=== PATIENT | female | born 1955 | race Caucasian/White ===

== ENCOUNTER 2018-07-13 08:02 | Outpatient (CLI) | payer BC, SELFPAY ==
[2018-07-13 09:59] LABS: Absolute Basophil Count 0.01 k/cumm (0.0-0.2); Absolute Eosinophil Count 0.27 k/cumm (0.0-0.7); Absolute Lymphocyte Count 0.78 k/cumm (1.2-3.4); Absolute Neutrophil Count 2.57 k/cumm (1.2-6.7); Basophils % 0.3; Eosinophils % 6.9; HCT 41.9 % (36.0-46.0); HGB 13.5 g/dL (12.0-15.5); Lymphocytes % 19.8; Mean Corp. HGB Concentration 32.2 g/dL (32.0-36.0); Mean Corpuscular Hemoglobin 29.4 pg (27.0-33.0); Mean Corpuscular Volume 91.3 fL (80-95); Mean Platelet Volume 8.3 fL (8.0-11.0); Monocytes % 7.6; Neutrophils % 65.4; Platelet Count 268 x1000/uL (130-400); RBC 4.59 m/cumm (4.00-5.20); RBC Distribution Width 12.8 % (11.7-14.6); White Blood Cell Count 3.93 k/cumm (4.4-10.8)
[2018-07-13 10:13] LABS: ALT 27 U/L (12-78); AST 18 U/L (15-37); Albumin 4.2 g/dL (3.4-5.0); Alkaline Phosphatase 55 U/L (46-116); Anion Gap 3.7 mmol/L (3-11); BUN 23 mg/dL (7-18); Bilirubin, Total 0.5 mg/dL (0.2-1.0); CO2 34.3 mmol/L (21.0-32.0); CREATININE 0.93 mg/dL (0.55-1.02); Calcium 9.4 mg/dL (8.5-10.1); Chloride 105 mmol/L (98-107); Glucose 80 mg/dL (70-100); Potassium 4.1 mmol/L (3.5-5.1); Sodium 143 mmol/L (136-145); Total Protein 7.3 g/dL (6.4-8.2)
[2018-07-14 10:18] LABS: CEA <0.5 ng/ml
== END 2018-07-13 08:22 ==
PROVIDERS: PCP Family Medicine; Visit Provider Nurse Practitioner Adult Health
DX: C20 Malignant neoplasm of rectum (principal)
CPT/HCPCS: 36415; 80053; 82378; 85025

== ENCOUNTER 2018-08-02 09:27 | Outpatient (CLI) | payer BC, SELFPAY ==
--- NOTE | 2018-08-02 08:52 | DI.MAMMO_ITS ---
SYMPTOMS/DIAGNOSIS: BREAST CANCER SCREENING, Z12.31 BILATERAL SCREENING MAMMOGRAM: Mammograms were interpreted according to the usual protocol including computer analysis with CAD system, tomosynthesis and C view imaging. Comparison is made with exams from 2008 through 2015. The breasts are composed of heterogeneously dense fibroglandular tissue, breast density category C. No suspicious masses or suspicious microcalcifications are seen. There has been no significant change. IMPRESSION: Category 1C, negative mammogram. Yearly screening mammography is recommended. [facility] ASSESSMENT OF FINDINGS: Negative. Category 1. Patient will receive a letter notifying them of these results. Bi-RADS category C. The breasts are heterogeneously dense, which may obscure small masses.
== END 2018-08-02 09:47 ==
PROVIDERS: PCP Family Medicine; Visit Provider Nurse Practitioner Family
DX: Z12.31 Encounter for screening mammogram for malignant neoplasm of breast (principal)
CPT/HCPCS: 77063; 77067

== ENCOUNTER 2019-07-25 08:43 | Outpatient (CLI) | payer MEDICARE, BC, SELFPAY ==
[2019-07-25 10:13] LABS: ALT 17 U/L (14-59); AST 17 U/L (15-37); Alkaline Phosphatase 74 U/L (46-116); Anion Gap 7.3 mmol/L (3-11); BUN 17 mg/dL (7-18); Bilirubin, Total 0.5 mg/dL (0.2-1.0); CO2 34.7 mmol/L (21.0-32.0); CREATININE 0.96 mg/dL (0.55-1.02); Calcium 9.3 mg/dL (8.5-10.1); Calculated LDL 87 mg/dL; Chloride 102 mmol/L (98-107); Cholesterol 177 mg/dL (50-200); Estimated GFR 58.33 (mL/min/1.73m2); Glucose 85 mg/dL (70-100); HDL Cholesterol 85 mg/dL (40-60); Sodium 144 mmol/L (136-145); Total Protein 6.6 g/dL (6.4-8.2); Triglyceride 27 mg/dL (30-150)
== END 2019-07-25 09:03 ==
PROVIDERS: PCP Family Medicine; Visit Provider Family Medicine
DX: I10 Essential (primary) hypertension (principal); Z13.220 Encounter for screening for lipoid disorders
CPT/HCPCS: 36415; 80053; 80061

== ENCOUNTER 2019-08-09 01:55 | Outpatient (CLI) | payer MEDICARE, BC, SELFPAY ==
--- NOTE | 2019-08-09 08:16 | DI.MAMMO_ITS ---
EXAM: MG MAMMO SCREENING CLINICAL HISTORY: screening,Z12.39 TECHNIQUE: Bilateral full field digital CC and MLO mammographic images were obtained with 3D tomosyn thesis and utilizing computer aided detection (CAD). COMPARISON: Available for comparison. FINDINGS: Masses/Architectural Distortion: None seen. Microcalcifications: No suspicious pleomorphic-type are seen. Skin Thickening/Nipple Retraction: None. IMPRESSION: 1. No significant interval change with no specific features of malignancy noted. 2. Unless there is more urgent need, screening mammography is recommended, as per [employer] guidelines. ACR BI-RAD Category- 1 Negative Breast Density - Category C - Heterogeneously dense The mammogram demonstrates the patient's breast tissue is dense. Dense breast tissue is very common a nd is not abnormal but dense breast tissue can make it harder to find cancer on a mammogram. Also, de nse breast tissue may increase their breast cancer risk. This information about the result of the [facility] mogram report was provided to the patient to raise their awareness. Use this report when you speak wi th the patient about their risks for breast cancer, which includes their family history. At that time , you may recommend for more screening tests (Ultrasound or MRI) as they might be useful based on the ir risk. A negative radiographic report should not delay biopsy if a dominant or clinically suspicious mass is present. Up to ten percent of cancers are not identified on mammography. A negative report may reinforce clinical impression. Adenosis and dense breasts may obscure an underlying neoplasm. False positive reports average 6 to 10%.
== END 2019-08-09 02:15 ==
PROVIDERS: PCP Family Medicine; Visit Provider Family Medicine
DX: Z12.31 Encounter for screening mammogram for malignant neoplasm of breast (principal)
CPT/HCPCS: 77063; 77067

== ENCOUNTER 2021-01-01 10:14 | Outpatient (CLI) | payer MEDICARE, BC, SELFPAY ==
[2021-01-02 14:02] LABS: COVID-19 RT-PCR UVMMC Result Positive (Negative)
== END 2021-01-01 10:15 | disposition home or self-care (01) ==
PROVIDERS: PCP Family Medicine; Visit Provider Family Medicine
DX: Z20.822 Contact with and (suspected) exposure to COVID-19 (principal)
CPT/HCPCS: U0003; U0005

== ENCOUNTER 2021-01-22 01:48 | Outpatient (CLI) | payer MEDICARE, BC, SELFPAY ==
--- NOTE | 2021-01-22 08:46 | DI.MAMMO_ITS ---
EXAM: MG MAMMO SCREENING CLINICAL HISTORY: screening,Z12.39 TECHNIQUE: Bilateral full field digital CC and MLO mammographic images were obtained with 3D tomosyn thesis and utilizing computer aided detection (CAD). COMPARISON: Available for comparison. FINDINGS: Masses/Architectural Distortion: None seen. Microcalcifications: No suspicious pleomorphic-type are seen. Skin Thickening/Nipple Retraction: None. IMPRESSION: 1. No significant interval change with no specific features of malignancy noted. 2. Unless there is more urgent need, screening mammography is recommended, as per [place] [employer] guidelines. BI-RADS Category 1 - Negative Breast Density - Category C - Heterogeneously dense Breast density category C or D implies that the patient has dense breast tissue. Dense breast tissue is very common and is not abnormal but dense breast tissue can make it harder to find cancer on a ma mmogram. Also, dense breast tissue may increase their breast cancer risk. This information about the result of the mammogram report was provided to the patient to raise their awareness. Use this report when you speak with the patient about their risks for breast cancer, which includes their family hist ory. At that time, you may recommend for more screening tests (Ultrasound or MRI) as they might be us eful based on their risk. A negative radiographic report should not delay biopsy if a dominant or clinically suspicious mass is present. Up to ten percent of cancers are not identified on mammography. A negative report may reinforce clinical impression. Adenosis and dense breasts may obscure an underlying neoplasm. False positive reports average 6 to 10%. Patient will receive a letter notifying them of these results.
== END 2021-01-22 02:08 ==
PROVIDERS: PCP Family Medicine; Visit Provider Family Medicine
DX: Z12.31 Encounter for screening mammogram for malignant neoplasm of breast (principal)
CPT/HCPCS: 77063; 77067

== ENCOUNTER 2021-01-22 03:45 | Outpatient (CLI) | payer MEDICARE, BC, SELFPAY ==
[2021-01-22 09:31] LABS: ALT 41 U/L (14-59); AST 30 U/L (15-37); Albumin 3.9 g/dL (3.4-5.0); Alkaline Phosphatase 60 U/L (46-116); Anion Gap 6.8 mmol/L (3-11); BUN 22 mg/dL (7-18); Bilirubin, Total 0.4 mg/dL (0.2-1.0); CO2 32.2 mmol/L (21.0-32.0); Calcium 8.8 mg/dL (8.5-10.1); Chloride 103 mmol/L (98-107); Estimated GFR 55.47 (mL/min/1.73m2); Glucose 91 mg/dL (74-106); Potassium 3.7 mmol/L (3.5-5.1); Sodium 142 mmol/L (136-145); Total Protein 6.7 g/dL (6.4-8.2)
== END 2021-01-22 03:46 | disposition home or self-care (01) ==
LOC: LBO 03:45
PROVIDERS: PCP Family Medicine; Visit Provider Family Medicine
DX: I10 Essential (primary) hypertension (principal)
CPT/HCPCS: 36415; 80053

== ENCOUNTER 2022-01-03 03:33 | Outpatient (CLI) | payer MEDICARE, BC, SELFPAY ==
[2022-01-03 12:20] LABS: Anion Gap 8.5 mmol/L (3-11); BUN 24 mg/dL (7-18); CO2 32.5 mmol/L (21.0-32.0); CREATININE 0.9 mg/dL (0.55-1.02); Calcium 9.3 mg/dL (8.5-10.1); Chloride 103 mmol/L (98-107); Glucose 104 mg/dL (74-106); Potassium 3.8 mmol/L (3.5-5.1); Sodium 144 mmol/L (136-145)
[2022-01-03 21:09] LABS: CEA <0.5 ng/mL (See Note)
== END 2022-01-03 03:34 | disposition home or self-care (01) ==
LOC: LBO 03:33
PROVIDERS: PCP Nurse Practitioner; Visit Provider Family Medicine
DX: C20 Malignant neoplasm of rectum (principal); I10 Essential (primary) hypertension
CPT/HCPCS: 36415; 80048; 82378

== ENCOUNTER → 2022-02-04 04:07 | Outpatient (CLI) | payer MEDICARE, BC, SELFPAY ==
--- NOTE | 2022-02-04 08:15 | DI.MAMMO_ITS ---
Exam(s) MAMMO SCREENING EXAM: MAMMO SCREENING CLINICAL HISTORY: screening,Z12.39 TECHNIQUE: Bilateral full field digital CC and MLO mammographic images were obtained with 3D tomosyn thesis and utilizing computer aided detection (CAD). COMPARISON: Available for comparison. FINDINGS: Masses/Architectural Distortion: None seen. There is a stable nodule in the upper outer quadrant of t he right breast. Microcalcifications: No suspicious pleomorphic-type are seen. Skin Thickening/Nipple Retraction: None. IMPRESSION: 1. No significant interval change with no specific features of malignancy noted. 2. Unless there is more urgent need, screening mammography is recommended, as per [employer] [employer] guidelines. BI-RADS Category 1 - Negative Breast Density - Category C - Heterogeneously dense Breast density category C or D implies that the patient has dense breast tissue. Dense breast tissue is very common and is not abnormal but dense breast tissue can make it harder to find cancer on a ma mmogram. Also, dense breast tissue may increase their breast cancer risk. This information about the result of the mammogram report was provided to the patient to raise their awareness. Use this report when you speak with the patient about their risks for breast cancer, which includes their family hist ory. At that time, you may recommend for more screening tests (Ultrasound or MRI) as they might be us eful based on their risk. A negative radiographic report should not delay biopsy if a dominant or clinically suspicious mass is present. Up to ten percent of cancers are not identified on mammography. A negative report may reinforce clinical impression. Adenosis and dense breasts may obscure an underlying neoplasm. False positive reports average 6 to 10%. Patient will receive a letter notifying them of these results.
== END ==
PROVIDERS: PCP Nurse Practitioner; Visit Provider Family Medicine
DX: Z12.31 Encounter for screening mammogram for malignant neoplasm of breast (principal)
CPT/HCPCS: 77063; 77067

== ENCOUNTER 2022-11-07 15:12 | Outpatient (REF) | payer MEDICARE, BC, SELFPAY ==
--- NOTE | 2022-11-07 14:35 | PAPFT_PTH ---
PATIENT: Patricia Arias LOC: [facility] U#:[id number] AGE/SX: 67/F ROOM: RE11/07/[address]: Cristina Zhong MD : [id number] BED: DIS: 11/07/2022 SPEC #: [id number] RECD: 11/07/22 17:03 STATUS: NIMOLonnie SALAS #: [id number] ARRON: 11/07/22 14:[address]: Cristina Zhong DEPT: [facility] Cytology RECD BY: Rika Acosta ENTERED: 11/07/22 17:04 SP TYPE: PAPFT OTHR DR: Rika Michael, REGGIE Tissues: 1 - CX/ENDOCX FOR PAP SMEARS Procedures: PAP THIN PREP/UVM Screening HPV DNA PROBE Comments: [id number]
== END 2022-11-07 15:13 | disposition home or self-care (01) ==
LOC: LBN 15:12
PROVIDERS: PCP Nurse Practitioner Family; Visit Provider Obstetrics & Gynecology
DX: Z12.4 Encounter for screening for malignant neoplasm of cervix (principal); Z11.51 Encounter for screening for human papillomavirus (HPV); Z01.419 Encounter for gynecological examination (general) (routine) without abnormal findings
CPT/HCPCS: 88142; 87624

== ENCOUNTER 2022-11-18 02:28 | Outpatient (CLI) | payer MEDICARE, BC, SELFPAY ==
--- NOTE | 2022-11-18 07:15 | DI.CT_ITS ---
Exam(s) CT ABDOMEN PELVIS W EXAM: CT ABDOMEN PELVIS W CLINICAL HISTORY: hx/rectal cancer w/ recent 2wk duration of rct pre. TECHNIQUE: Imaging Protocol: Axial computed tomography images with coronal and sagittal reformatted images were created and reviewed CONTRAST MATERIAL: Intravenous: Omnipaque-350 100cc Oral: Yes. Oral contrast also administered for bowel COMPARISON: CT ABD PELVIS WITH CONTRAST from 06/09/2017 FINDINGS: VISUALIZED LUNG BASES: No nodules nor pleural effusions evident. Scarring in the lateral basal segme nt of the left lung base is unchanged from 2017. There are no pleural effusions.. ABDOMEN: There is no ascites. Left-sided colostomy again noted and appears unchanged. No parastomal hernia e vident. LIVER: There are no focal hepatic lesions evident. No dilated intrahepatic ducts. GALLBLADDER/BILIARY: Layering small gallstones are again noted no evidence of gallbladder wall edema to suggest acute cholecystitis. CBD is not dilated. PANCREAS: No evidence of pancreatic mass nor dilatation of the pancreatic duct. SPLEEN: Spleen is not enlarged. No obvious intrasplenic lesions. Splenic and portal veins are paten t. ADRENALS: There are no significant adrenal masses. KIDNEYS:No cysts evident. No solid renal masses. No calculi nor hydronephrosis.. ABDOMINAL AORTA: Abdominal aorta is not enlarged. LYMPH NODES:There is no retroperitoneal nor paraaortic adenopathy. ABDOMINAL WALL: No evidence of significant anterior abdominal wall nor inguinal hernia. GI: There is no evidence of bowel obstruction, free air, nor abscess. Rectum is been oversewn. The appearance of the cecum, ileocecal valve, and distal small bowel loops within the pelvis are unchanged from 2017 with mild uniform circumferential wall thickening which katelyn ears unchanged and without new focal strictures. PELVIS: LYMPH NODES: There is no intrapelvic nor inguinal adenopathy. REPRODUCTIVE: Uterus is again noted be retroverted. The there is no new abnormal tissue in the mil[place] cral region when compared to 2017. URINARY BLADDER: No calculi nor obvious masses evident OSSEOUS: Disc space disease lower lumbar spine. Degenerative anterolisthesis L4 upon L5 again noted. No lytic nor blastic osseous lesions identified. IMPRESSION: 1. Multilevel findings as described above but without significant change compared to previous CT scan of 06/09/2017. 2. Left-sided colostomy appears stable. No bowel obstruction. No free air. No abscess. 3. Cholelithiasis again noted but no evidence of acute cholecystitis nor dilatation of the biliary tr ee. 4. Stable appearing deep pelvic scar tissue and mild circumferential small bowel wall thickening, unc hanged from 2017. No new stricture evident. No new abnormal intrapelvic tissue nor lymphadenopathy evident. 5. no evidence of metastatic disease in the liver. No ascites. RADIATION DOSE DELIVERED: 747.08mGy.cm Total DLP DATA REPOSITORY: All CT scans at this facility are submitted to the National Radiology Data Registry (NRDR) Dose Index Registry (DIR) with the [employer] (ACR). RADIATION OPTIMIZATION: All CT scans at this facility use at least one of these dose optimization te chniques: automated exposure control; mA and/or kV adjustment per patient size (includes targeted exa ms where dose is matched to clinical indication); or iterative reconstruction.
[2022-11-18 12:17] LABS: Estimated GFR 61.36 (mL/min/1.73m2)
[2022-11-18] MEDS: Omnipaque 350 MG/ML 100 ML BTL IJ (13:48)
[2022-11-18] MEDS: Normal Saline - Diluent 50 ML VIAL IJ (13:49)
== END 2022-11-18 02:48 ==
LOC: DI 02:29
PROVIDERS: PCP Nurse Practitioner Family; Visit Provider Nurse Practitioner Family
DX: Z01.812 Encounter for preprocedural laboratory examination (principal); C20 Malignant neoplasm of rectum; K80.20 Calculus of gallbladder without cholecystitis without obstruction
CPT/HCPCS: 74177; 82565; J3490

== ENCOUNTER 2023-02-03 03:00 | Outpatient (CLI) | payer MEDICARE, BC, SELFPAY ==
[2023-02-03 08:36] LABS: HGB 13.5 g/dL (11.2-15.7); MCH 29.3 pg (27.0-33.0); MCHC 32.9 % (32.0-36.0); MCV 89 fL (80-95); MPV 8.4 fL (8.0-11.0); Platelet Count 292 10^3/uL (130-400); RDW 12.6 % (11.7-14.6); RDW-SD 41.1 fL; WBC 5.34 10^3/uL (4.4-10.8)
[2023-02-03 08:45] LABS: ALT 24 U/L (14-59); AST 18 U/L (15-37); Albumin 4.2 g/dL (3.4-5.0); Alkaline Phosphatase 56 U/L (46-116); BUN 23 mg/dL (7-18); Bilirubin, Total 0.6 mg/dL (0.2-1.0); CREATININE 1.1 mg/dL (0.55-1.02); Calcium 9.2 mg/dL (8.5-10.1); Calculated LDL 81 mg/dL (<100); Chloride 103 mmol/L (98-107); Cholesterol 188 mg/dL (<200); Estimated GFR 54.73 (mL/min/1.73m2); Glucose 99 mg/dL (74-106); HDL Cholesterol 102 mg/dL (40-60); Potassium 3.5 mmol/L (3.5-5.1); Sodium 142 mmol/L (136-145); Total Protein 7.1 g/dL (6.4-8.2); Triglyceride 28 mg/dL (<150)
== END 2023-02-03 03:01 | disposition home or self-care (01) ==
LOC: LBO 03:00
PROVIDERS: PCP Nurse Practitioner Family; Visit Provider Nurse Practitioner Family
DX: I10 Essential (primary) hypertension (principal); N81.2 Incomplete uterovaginal prolapse; G62.9 Polyneuropathy, unspecified
CPT/HCPCS: 36415; 80053; 80061; 85027

== ENCOUNTER 2023-02-20 00:27 | Outpatient (CLI) | payer MEDICARE, BC, SELFPAY ==
--- NOTE | 2023-02-20 07:00 | DI.MAMMO_ITS ---
Exam(s) MAMMO SCREENING EXAM: MAMMO SCREENING CLINICAL HISTORY: screening,z12.39 TECHNIQUE: Mammograms were interpreted according to the usual protocol including computer analysis w [employer] CAD system, tomosynthesis and C-view imaging. COMPARISON: 2012 through 2021 FINDINGS: The breasts are composed of heterogeneously dense fibroglandular densities, Breast Density category C . No suspicious masses or suspicious microcalcifications are seen. No skin thickening or abnormal axillary lymph nodes are seen. There has been no significant change from prior exams. IMPRESSION: BI-RADS Category 1, Negative mammogram. Yearly screening mammography is recommended. Breast Density Category C, heterogeneously Dense. The mammogram demonstrates the patient's breast tissue is dense. Dense breast tissue is very common a nd is not abnormal but dense breast tissue can make it harder to find cancer on a mammogram. Also, de nse breast tissue may increase breast cancer risk. This information about the result of the mammogram report was provided to the patient to raise their awareness. Use this report when you speak with the patient about their risks for breast cancer, which includes their family history. At that time, you may recommend additional screening tests (Ultrasound or MRI) as they might be useful based on their r isk. A negative radiographic report should not delay biopsy if a dominant or clinically suspicious mass is present. Up to ten percent of cancers are not identified on mammography. A negative report may reinforce clinical impression. Adenosis and dense breasts may obscure an underlying neoplasm. False positive reports average 6 to 10%.
== END 2023-02-20 00:47 ==
LOC: DI 00:27
PROVIDERS: PCP Nurse Practitioner Family; Visit Provider Nurse Practitioner Family
DX: Z12.31 Encounter for screening mammogram for malignant neoplasm of breast (principal)
CPT/HCPCS: 77063; 77067

== ENCOUNTER → 2023-03-26 12:47 | Outpatient (BNVA) | payer MEDICARE, BC, SELFPAY | PROVIDERS: PCP Nurse Practitioner Family; Referring Provider Nurse Practitioner Family; Visit Provider Surgery | DX: Z12.11 Encounter for screening for malignant neoplasm of colon (principal); R19.5 Other fecal abnormalities; Z93.3 Colostomy status | CPT/HCPCS: 99242 ==

== ENCOUNTER 2023-05-26 06:09 | Day surgery (SDC) | payer MEDICARE, BC, SELFPAY ==
--- NOTE | 2023-05-25 19:18 | W.PM.HP.N ---
Date of service: 05/26/23 Time of Service: 07:42 Assessment and Plan Assessment and plan (1) Colostomy present: Status: Chronic (2) Positive colorectal cancer screening using DNA-based stool test: Status: Acute Assessment and plan: Plan: Colonoscopy w/ general & natural airway.? Informed consent is obtained for the procedural (explained in simple layman's terms that?the pt and/or family could understand) explaining risks vs benefits and alternatives to the procedure and consequences if we do not do the procedure and need/rational for the procedure. Risks include but are not limited to: bleeding, infection, perforation of colon.? This would necessitate emergency surgery to repair the damage w/ possible ostomy; and other associated complications w/ the required surgery. ? Also complications of anesthesia including aspiration, MN/CVA/, inability to complete the procedure. I discussed with the?patient would they could expect during the procedure, post procedure and recovery time and risks.? The patient understands that they need to have a ride home after the procedure.? The patient was given all this information in writing and expressed understanding. If there are any questions or concerns please feel free to contact our office.? Generally Colonoscopy does not require antibiotics prophylaxis, (3) Peripheral neuropathy: Status: Acute (4) Essential hypertension: Status: Acute (5) Incomplete uterovaginal prolapse: Status: Acute (6) Adenocarcinoma of rectum: (7) Vaginal atrophy: History of Present Illness Narrative: Today: Patient is here today for colonoscopy for +Cologuard/hx of rectal cancer and s/p APR.??? They completed a bowel prep with just a clear yellow residual effluent.? They not having any chest pain or shortness of breath, currently.? They are not experiencing any fever or chills.? They deny any productive cough or upper respiratory tract infection signs or symptoms.? They are not having abdominal pain, or nausea and vomiting.? They have not had any changes in medications, past medical history or past surgical history since previously being seen in the office. They have not had any accidents or have been in the ER since the clinic pre-operative evaluation. ??I reviewed the procedure with the patient today, including risks and benefits of the procedure, and what they could expect at home for recovery.? All questions are answered to the patient?s satisfaction today, and they are stable to proceed with the proposed procedure. Clinic Visit: 03/26/23 RN:?Pt reports that 11 years ago she had colon cancer, pt has colostomy. Pt had rectal cancer 11 yrs ago.? She had preop XRT/chemo and an APR.? She hs not had a CE since the surgery.? She recently had a cologuard which was postiive.? They denies problems with constipation or diarrhea.? They deny any pain or difficulty with bowel movements, or rectal bleeding.? There is no family history of any colon cancer.? Pt has not had any unexplained weight loss.? Their appetite is good.? ?They deny heart, lung, or kidney problems. They are not having heartburn or indigestion.? The patient? has not had a prior ZOHREH.? They deny any problems with anesthesia in the past.? She denies any drainage/bleeding or growths at the perineum.? Permanent stoma in LLQ.? Pt instructed to bring extra stoma supplies. Anesthesia: general (without airway) Previous surgical intolerances: No Previous surgical complications: No Pulmonary risk factors: Planned procedure: Yes Sleep apnea risks: No COPD/Asthma/Smoker:no Can climb one flight of stairs (12-13 steps) in less than 30 seconds without stopping and without symptoms: Yes The surgery proposed for this patient is: low risk Active cardiac conditions: none Active risk factors: none ASA (acetylsalicylic acid): not used Beta blockers: not used Kidneys: no concerns DM:no Pt has not had a CE since.? Pt had chemo and XRT.? Port is out.? CT 11/18/22 MPRESSION: 1. Multilevel findings as described above but without significant change compared to previous CT scan of 06/09/2017. 2. Left-sided colostomy appears stable.? No bowel obstruction.? No free air.? No abscess. 3. Cholelithiasis again noted but no evidence of acute cholecystitis nor dilatation of the biliary tree. 4. Stable appearing deep pelvic scar tissue and mild circumferential small bowel wall thickening, unchanged from 2017.? No new stricture evident.? No new abnormal intrapelvic tissue nor lymphadenopathy evident. 5. no evidence of metastatic disease in the liver.? No ascites. ? Review of Systems All systems reviewed & are unremarkable except as noted in HPI and below PFSH All Active Problems Colostomy present (Chronic) Gallstones without obstruction of gallbladder (Acute) Positive colorectal cancer screening using DNA-based stool test (Acute ~02/19/23) Positive Cologuard Peripheral neuropathy (Acute) Secondary to chemotherapy Essential hypertension (Acute) Incomplete uterovaginal prolapse (Acute) Medical History Adenocarcinoma of rectum (~10/2011) CEA 4.0; Treated with neoadjuvant chemoradiation therapy with Xeloda. S/p AP resection 03/2012; 10/15 lymph node positive. Completed adjuvant FOLFOX 12 weekly treatments. colostomy Vaginal atrophy declines vaginal estrogen Surgical History Colectomy 03/2012 with colostomy / Chemo and radiation History of colonoscopy with polypectomy (~11/13/11) History of low anterior resection of rectum Family History Mother , at 84 of metastatic lung cancer Lung cancer Father , at 91 of [place] Heart disease Myocardial infarction Prostate cancer Sister Osteoarthritis Sister Osteoarthritis Brother Osteoarthritis Maternal Grandfather Lung cancer Maternal Grandmother , age 82 No problems noted. Paternal Grandfather No problems noted. Paternal Grandmother , age 82 No problems noted. 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 Pets and animals: Yes Pets and animals: cat(s) and dog(s) Sexually active: Yes Do you think of yourself as: straight/heterosexual Current gender identity: male What is your relationship status?: living with partner How often do you talk on the phone with friends or family?: three or more times per week How often do you get together with friends or relatives?: once per week How often do you attend anabaptist or confucianist services?: 4 or more times per year Do you belong to any clubs or organized social groups?: no Panel score (0-1 are the most socially isolated patients): 3 What type of physical activity do you participate in: walking Duration: decline to answer Frequency: 3-4 times per week Judy/Samaritan: Buddhism Special judy needs: No Seatbelt use: always Helmet use: Yes Helmet use: always Drive intox or ride w/intox driver/guide: No Do you feel safe at home: Yes Do you feel safe in your relationship?: Yes History History 2 Para 2 Hx # Term Pregnancies 2 Multiple births Hx # Pregnancies Ectopic pregnancies AB induced Hx Number of Living Children 2 AB spontaneous Meds Allergies and Home Medications Allergies Allergy/AdvReac Type Severity Reaction Status Date / Time Penicillins Allergy Severe Hives Verified 05/26/23 06:19 Home Medications Medication Instructions Recorded Confirmed Type multivitamin (Daily Multi-Vitamin 1 ea PO DAILY 05/31/13 05/26/23 History tablet) loperamide 1 mg/7.5 mL oral liquid 1 mg PO PRN 07/25/13 05/22/23 History (Imodium A-D) elderberry fruit 460 mg-elderberry See Rx Instructions PO DAILY 07/28/19 05/26/23 History flower 115 mg capsule gabapentin 100 mg capsule 100 mg PO BID neuropathy 30 days 10/02/22 05/26/23 Rx #60 caps hydrochlorothiazide 25 mg tablet 25 mg PO DAILY #90 tabs 10/02/22 05/26/23 Rx Exam Narrative Exam Narrative: PHYSICAL EXAM GENERAL APPEARANCE: Alert, healthy appearance, oriented, x 3,? in no acute distress HYDRATION: Well hydrated HEAD, EYES, EARS, NECK, THROAT: Head is normocephalic, pupils equal, round, reactive to light and accommodation, ocular movement intact, sclera clear and no jaundice. ?Dentition intact. LUNGS: normal respiration/normal chest excursion. ?Clear to auscultation bilaterally. ?No wheeze. ?HEART: Regular rate and rhythm. no murmurs EXTREMITY: No edema or cyanosis.? no leg pain, redness, swelling.? ABDOMEN: soft and non-tender to palpation.? Normal bowel sounds.? post surgical changes noted. No hernias.? CBC White Blood Count 5.34 10^3/uL (4.4-10.8) 02/03/23 Red Blood Count 4.60 10^6/uL (3.93-5.22) 02/03/23 Hemoglobin 13.5 g/dL (11.2-15.7) 02/03/23 Hematocrit 41.0 % (36.0-46.0) 02/03/23 Mean Corpuscular Volume 89 fL (80-95) 02/03/23 Mean Corpuscular Hemoglobin 29.3 pg (27.0-33.0) 02/03/23 Mean Corpuscular Hemoglobin Concent 32.9 % (32.0-36.0) 02/03/23 Red Cell Distribution Width 12.6 % (11.7-14.6) 02/03/23 Platelet Count 292 10^3/uL (130-400) 02/03/23 Mean Platelet Volume 8.4 fL (8.0-11.0) 02/03/23 Neutrophils % 65.4 07/13/18 Lymphocytes % 19.8 07/13/18 Monocytes % 7.6 07/13/18 Eosinophils % 6.9 07/13/18 Basophils % 0.3 07/13/18 Immature Granulocytes % 0.0 07/13/18 Comprehensive Metabolic Panel Sodium 142 mmol/L (136-145) 02/03/23 08:25 Potassium 3.5 mmol/L (3.5-5.1) 02/03/23 08:25 Chloride 103 mmol/L (98-107) 02/03/23 08:25 Carbon Dioxide 34.0 mmol/L (21.0-32.0) H 02/03/23 08:25 BUN 23 mg/dL (7-18) H 02/03/23 08:25 Creatinine 1.1 mg/dL (0.55-1.02) H 02/03/23 08:25 Estimated GFR/1.73 m2 >= 60.00 (mL/min/1.73m2) 01/03/22 11:24 Glucose 99 mg/dL (74-106) 02/03/23 08:25 Calcium 9.2 mg/dL (8.5-10.1) 02/03/23 08:25 Total Bilirubin 0.6 mg/dL (0.2-1.0) 02/03/23 08:25 ALT 24 U/L (14-59) 02/03/23 08:25 AST 18 U/L (15-37) 02/03/23 08:25 Alkaline Phosphatase 56 U/L (46-116) 02/03/23 08:25 Total Protein 7.1 g/dL (6.4-8.2) 02/03/23 08:25 Albumin 4.2 g/dL (3.4-5.0) 02/03/23 08:25 Diabetes results Glucose 99 mg/dL (74-106) 02/03/23 Total Cholesterol 188 mg/dL (<200) 02/03/23 LDL Cholesterol, Calc 81 mg/dL (<100) 02/03/23 HDL Cholesterol 102 mg/dL (40-60) 02/03/23 Triglycerides 28 mg/dL (<150) 02/03/23 BUN 23 mg/dL (7-18) H 02/03/23 Creatinine 1.1 mg/dL (0.55-1.02) H 02/03/23 Estimated GFR/1.73 m2 >= 60.00 (mL/min/1.73m2) 01/03/22 Est GFR (CKD-EPI 2020) 54.73 (mL/min/1.73m2) 02/03/23 Sodium 142 mmol/L (136-145) 02/03/23 Potassium 3.5 mmol/L (3.5-5.1) 02/03/23 Chloride 103 mmol/L (98-107) 02/03/23 Carbon Dioxide 34.0 mmol/L (21.0-32.0) H 02/03/23 Calcium 9.2 mg/dL (8.5-10.1) 02/03/23 AST 18 U/L (15-37) 02/03/23 ALT 24 U/L (14-59) 02/03/23 Total Protein 7.1 g/dL (6.4-8.2) 02/03/23 Albumin 4.2 g/dL (3.4-5.0) 02/03/23 Vitamin B12 270 pg/mL (193-928) 05/10/12 Thyroid results Thyroid Dysfunction Results: No Data to Display Anemia profile Hgb 13.5 g/dL (11.2-15.7) 02/03/23 Hct 41.0 % (36.0-46.0) 02/03/23 MCV 89 fL (80-95) 02/03/23 RDW 12.6 % (11.7-14.6) 02/03/23 Iron 89 ug/dL (50-175) 06/30/12 Ferritin 246 ng/mL (5-148) H 06/30/12 TIBC 284 ug/dL (250-450) 06/30/12 Transferrin % Sat 31 % (15-50) 06/30/12 Vitamin B12 270 pg/mL (193-928) 05/10/12 Folate 15.8 ng/mL (3-17) 06/30/12 Time Spent Time spent with Patient: <40 minutes Time was spent: preparing to see the patient(eg.review tests), obtaining and/or reviewing separately otained hiistory, ordering medications,tests, procedures, referring, communicating with other health transitions rn care coordinator, indepentently interpreting results, counseling the patient and care coordination
--- NOTE | 2023-05-25 19:22 | PDOC.DSDIS_ITS ---
Date of service: 05/26/23 Time of Service: 08:28 Discharge Plan Disposition Patient Disposition: Home Condition: Good Discharge Details Reason For Visit: colon scope Attending Provider: Jackie Burgess Primary Care Provider: Rika Michael Home Meds and New Rx's Prescriptions: Continued elderberry fruit and flower 460-115 mg capsule See Rx Instructions PO DAILY Rx Instructions: 1 CAP PO daily; multivitamin [Daily Multi-Vitamin] 1 EACH tablet 1 ea PO DAILY loperamide [Imodium A-D] 1 MG/7.5 ML liquid 1 mg PO PRN gabapentin 100 mg capsule 100 mg PO BID 30 Days Qty: 60 11RF hydrochlorothiazide 25 mg tablet 25 mg PO DAILY Qty: 90 3RF Discontinued polyethylene glycol 3350 17 gram/dose powder 238 g PO ONCE Qty: 238 0RF Rx Instructions: take per colonoscopy instructions bisacodyl [Dulcolax (bisacodyl)] 5 mg tablet,delayed release (DR/EC) 5 mg PO ONCE Qty: 4 0RF Rx Instructions: take per colonoscopy instructions Discharge Instructions Additional Instructions: DSU Colonoscopy Post- Op Instructions Instructions for Everyone who is given Anesthesia: For your safety, please do the following for the next twenty-four (24) hours: *Do Not operate a motor vehicle (car, truck, motorcycle, etc.) *Do Not drink alcoholic beverages or use any recreational drugs for the first 24 hours or while taking pain medications. The medications in your body may have a reaction that can be dangerous. *Do Not make any important decisions or sign any important papers. Findings: normal colon Follow up: repeat in 10 years time 1. No lifting over 20 pounds or strenuous activity for the first 24 hours after your procedure. After 24 hours there are no restrictions on your activity but you may feel fatigued for a few days. 2. After you arrive home you may have a light meal and return to your normal diet as you can tolerate it without feeling sick to your stomach. 3. You may have a bloated, gaseous feeling in your belly (abdomen) after a colonoscopy. Passing gas and belching will help. Walking or lying down on your left side with your knees flexed may relieve the discomfort. Call the office at [phone] (Office) or [phone] (Hospital) right away if you notice any of the following: a.Vomiting of blood or ?coffee ground stools?. b.Rectal bleeding 1Tbsp, blood clots or continuous bleeding. c.Severe belly (abdominal) pain. d.A hard distended belly (abdomen) and an inability to pass gas. 4. Please don?t expect to have a normal BM (bowel movement) for 2-3 days after your procedure. 5. If there are questions regarding the findings of your procedure, please contact your doctor 6. If you are unable to contact your doctor with a problem, contact the hospital at [phone]. 7. Continue all your regular medications unless directed otherwise. I understand the above instructions and have no questions. Signature of Patient or Adult Escort Name of Responsible Adult Escort Signature of Nurse Date/Time Activity:: see above Diet:: see above Discharge Orders Discharge Orders: Discharge Order (Routine); Ordered 05/26/23 Ordered By: Jackie Burgess DS: Diagnosis Discharge Diagnosis (1) Colostomy present: Status: Chronic (2) Positive colorectal cancer screening using DNA-based stool test: Status: Acute Asessment and Plan: The patient is seen and examined after their colonoscopy.? The patient has been able to pass gas.? They are not having abdominal pain.? They have been able to tolerate liquids and a snack.? They do not have any nausea or vomiting.? They are not having any chest pain or shortness of breath.??? They are not having any rectal bleeding. Their vital signs have been stable-see nursing notes. We discussed findings during their colonoscopy, and any biopsies that were done/polyps that were removed. The patient will be sent a letter with any biopsy results, and when to repeat the colonoscopy.-see discharge instructions. Patient was given explicit instructions to follow-up regarding colonoscopy-refer to discharge instructions.? We reviewed resumption of medications. Patient verbalized understanding and discharged in stable and satisfactory condition- See nursing notes. (3) Peripheral neuropathy: Status: Acute (4) Essential hypertension: Status: Acute (5) Incomplete uterovaginal prolapse: Status: Acute (6) Adenocarcinoma of rectum: (7) Vaginal atrophy:
--- NOTE | 2023-05-25 19:25 | W.COLOREPORT ---
Date of service: 05/26/23 Time of Service: 08:24 Colonoscopy Report Date of procedure: 05/26/23 Pre-op diagnosis general: +Cologuard Post-op diagnosis procedure note: other (Right-sided diverticula) Procedure: Colonoscopy via stoma Surgeon: Jackie Burgess Anesthesia Type: General:No Airway Estimated blood loss (mL): 0 Pathology: none sent Complications: None Disposition: same day Prep: Miralax/Dulcolax Procedure Description: After informed consent was obtained the patient was taken to the procedure room and placed in a left decubitous position. Monitors were applied and a time out was done. The patients name, date of , procedure, allergies to medications and metal in their body was reviewed. The patient was then sedated. Once sedated and comfortable a digital exam is done through the stoma. She has significant stenosis and retraction. I am able to dilate up the stoma so that we can pass a pediatric scope. There is no skin excoriation The scope was then introduced and retrofelexed. The scope was then advanced to the cecum without difficulty. The TI and appendiceal orifice were identified. The prep was BBPS 3 in all segments for total of 8.5. The scope was then slowly retracted over 10 minutes back into the stoma. She has a few right-sided diverticula. There is no signs of active bleeding infection. The scope was removed and the patient was woken up and taken back to Same day surgery in stable condition. Also did an exam of the perineal scar and buttocks; there is no signs of any tumor recurrence. The patient tolerated the procedure well and there were no immediate complications. Follow up: The patient should follow up in 10 years unless they develop changes in bowel habits or other new gastrointestinal complaints.
[2023-05-26 06:16] VITALS: BP 156/90; PULSE 106; RESP 16; TEMP 36.6; O2SAT 98
[2023-05-26] MEDS: Lactated Ringers 1,000 ML 80 ML IV (06:41)
--- NOTE | 2023-05-26 06:47 | W.ANESPRE ---
General Info Date of Service Date Performed: 05/26/23 Height: 5 ft 4 in Weight: 47.9 kg Body Mass Index (BMI): 18.1 Surgical Procedure: Operation Date: 05/26/23 07:35 Proposed Procedure Side Surgeon p Colonoscopy via Colostomy Jackie Burgess DO Pre-Op Diagnosis Post-Op Diagnosis colon scope Meds Allergies and Home Medications Allergies Allergy/AdvReac Type Severity Reaction Status Date / Time Penicillins Allergy Severe Hives Verified 05/26/23 06:19 Home Medication Medication Instructions Recorded multivitamin (Daily Multi-Vitamin 1 ea PO DAILY 05/31/13 tablet) loperamide 1 mg/7.5 mL oral liquid 1 mg PO PRN 07/25/13 (Imodium A-D) elderberry fruit 460 mg-elderberry See Rx Instructions PO DAILY 07/28/19 flower 115 mg capsule gabapentin 100 mg capsule 100 mg PO BID neuropathy 30 days 10/02/22 #60 caps hydrochlorothiazide 25 mg tablet 25 mg PO DAILY #90 tabs 10/02/22 Current Visit Medications: Current Medications Generic Name Dose Route Start Last Admin Trade Name Ciro PRN Reason Stop Dose Admin Hyoscyamine Sulfate 0.125 mg 05/26/23 08:43 Hyoscyamine 0.125 Mg Sl/Oral/Chew SL 06/25/23 08:42 DIRECTED PRN Ringer's Solution 1,000 mls @ 80 mls/hr 05/26/23 06:00 05/26/23 06:41 IV 06/24/23 23:59 80 mls/hr INFUSION LISA Administration IV Miscellaneous Supplies 1 each 05/26/23 06:00 Iv Access IV 06/24/23 23:59 DIRECTED LISA Ondansetron HCl 4 mg 05/26/23 08:43 Ondansetron 4 Mg/2 Ml Vial IVP 06/25/23 08:42 Q4H PRN PRN Nausea / Vomiting Sodium Chloride 0 ml 05/26/23 06:00 Normal Saline Flush 10 Ml Syr IV 06/24/23 23:59 PRN PRN Sodium Chloride 0 ml 05/26/23 06:00 Normal Saline 10 Ml Vial IJ 06/24/23 23:59 DIRECTED PRN Sterile Water 0 ml 05/26/23 06:00 Water,Injection,Sterile 10 Ml Vial IJ 06/24/23 23:59 DIRECTED PRN PFSH Active Problems Active Problems: Problem Status Onset Code Colostomy present Z93.3 Gallstones without obstruction of gallbladder K80.20 Positive colorectal cancer screening using DNA-based stool test ~02/19/23 R19.5 Peripheral neuropathy G62.9 Essential hypertension I10 Incomplete uterovaginal prolapse N81.2 Medical History Medical History Adenocarcinoma of rectum (~10/2011) CEA 4.0; Treated with neoadjuvant chemoradiation therapy with Xeloda. S/p AP resection 03/2012; 10/15 lymph node positive. Completed adjuvant FOLFOX 12 weekly treatments. colostomy Vaginal atrophy declines vaginal estrogen Surgical History Surgical History Colectomy 03/2012 with colostomy / Chemo and radiation History of colonoscopy with polypectomy (~11/13/11) History of low anterior resection of rectum Tobacco Smoking/Tobacco Use Status: Never Passive smoking exposure: Yes Second hand exposure: Yes Alcohol Alcohol Intake: never Substance Use Substance use: Never Substance use type: does not use Prental History History 2 Para 2 Hx # Term Pregnancies 2 Multiple births Hx # Pregnancies Ectopic pregnancies AB induced Hx Number of Living Children 2 AB spontaneous Vital Signs and Lab Results Vital Signs Most Recent Vital Signs in EMR: Most Recent Vital Signs Temp Pulse Resp BP Pulse Ox 36.6 C 106 H 16 156/90 H 98 05/26/23 06:16 05/26/23 06:16 05/26/23 06:16 05/26/23 06:16 05/26/23 06:16 Lab Results Blood Type / Crossmatch: No Data to Display Complete Blood Count: No Data to Display Complete Metabolic Panel: No Data to Display Liver Function Panel: No Data to Display Coagulation Panel: No Data to Display Cardiac Panel: No Data to Display Arterial Blood Gas: No Data to Display Venous Blood Gas: No Data to Display Pancreas Panel: No Data to Display Thyroid Panel: No Data to Display Infectious Disease: No Data to Display Blood Cultures: No Data to Display Toxicology Panel: No Data to Display Anesthesia Assessment and Plan Anesthesia History Personal History: No History of Anesthesia Complications Family History: No Family History of Anesthesia Complications Exercise Tolerance Exercise Tolerance: Metabolic Equivalents>4 Pertinent Negatives Pertinent Negatives: No Symptoms of GERD, No Major Cardiovascular Symptoms or Complaints, No Major Pulmonary Symptoms or Complaints and No History of CVA/TIA Cardiac & Pulmonary Exam Cardiac Exam: Normal S1/S2 Heart Sounds Pulmonary Exam: Clear Bilateral Breath Sounds Implantable Cardiac Device Does patient have a Pacemaker or an ICD?: No Airway Exam Known Difficult Airway: No Mallampati Class: 2 Mouth Opening: Normal (> 3cm) Thyromental Distance: Greater than 3 cm Neck Range of Motion: Full ROM Neck Circumference: Normal Teeth Condition: Normal Dentition ASA Classification ASA Score: ASA 2 Emergency Case?: No NPO Status NPO Status: NPO Clears >2 hours, Solids >8 hours Anesthesia Plan Resuscitation Status: Full Code Anesthesia Technique: General Anesthesia Airway Planned: Natural Airway Monitors Used: Standard Monitors
[2023-05-26 07:30] VITALS: BMI 18.1
[2023-05-26 08:23] VITALS: BP 132/62; PULSE 73; RESP 16; TEMP 36.3; O2SAT 99
--- NOTE | 2023-05-26 08:38 | W.ANESPOSTOP ---
Postoperative Evaluation Date, Time and Location Date Performed: 05/26/23 Time Performed: 08:25 Patient Location: Day Surgery Unit Vital Signs Most Recent Imported Vital Signs: Most Recent Vital Signs Temp Pulse Resp BP Pulse Ox 36.3 C L 73 16 132/62 99 05/26/23 08:23 05/26/23 08:23 05/26/23 08:23 05/26/23 08:05/26/23 08:23 Pain Score Most Recent Pain Score: Most Recent Pain Score Pain Level 0 05/26/23 08:23 Assessment Mental Status: Awake (Alert & Oriented to Patient Baseline) Airway and Respiratory Function: Patent airway with normal (patient baseline) respiratory exam Cardiovascular Function: Hemodynamically Stable Hydration Status: Adequately Hydrated Nausea & Vomiting: No Nausea or Vomiting Pain: Pt. Denies Any Pain Peripheral Nerve Block: Patient did not receive a nerve block
[2023-05-26 08:49] VITALS: BP 144/66; PULSE 65; RESP 16; TEMP 35.9; O2SAT 95
== END 2023-05-26 09:00 | disposition home or self-care (01) ==
PROVIDERS: PCP Nurse Practitioner Family; Visit Provider Surgery
PROC: 0DJD8ZZ Inspection of Lower Intestinal Tract, Via Natural or Artificial Opening Endoscopic (ICD-10-PCS; CPT 45378; principal; 2023-05-26 07:30)
DX: Z12.11 Encounter for screening for malignant neoplasm of colon (principal); Z93.3 Colostomy status; Z85.038 Personal history of other malignant neoplasm of large intestine; R19.5 Other fecal abnormalities; K57.30 Diverticulosis of large intestine without perforation or abscess without bleeding
CPT/HCPCS: G0105

== ENCOUNTER 2023-08-04 11:12 | Outpatient (CLI) | payer MEDICARE, BC, SELFPAY ==
--- NOTE | 2023-08-04 11:00 | RT.EKG_ITS ---
APPROVED REPORT Exam: Resting ECG Reason for Exam: Chest pain Patient Location: O HR:93 bpm ECG Measurements Heart Rate 93 AXIS NC 168 P 78 QRSd 88 QRS 70 QT 351 T 60 QTc 437 Conclusion Sinus rhythm...normal P axis, V-rate 50- 99 Normal Electrocardiogram
== END 2023-08-04 11:13 | disposition home or self-care (01) ==
LOC: DI.CM 11:12
PROVIDERS: PCP Nurse Practitioner Family; Visit Provider Family Medicine
DX: R07.9 Chest pain, unspecified (principal)
CPT/HCPCS: 93010

== ENCOUNTER → 2023-08-13 00:44 | Outpatient (CLI) | payer MEDICARE, BC, SELFPAY ==
--- NOTE | 2023-08-13 07:30 | DI.NM_ITS ---
APPROVED REPORT Exam: Exercise Treadmill Patient Location: Out-Patient Room/Bed: Stress Nurse: Irina Aguilar RN Ordering Provider:REFUGIO CERNA, Contact Number: [phone] BMI: 18.70 Baseline Rhythm: Sinus Rhythm Indications: Chest pain Medical History Medical History: Peripheral neuropathy, HTN Cardiac Medications: Amlodipine, gabapentin, hydrochlorothiazide, multivitamin Allergies: Penicillins Cardiac Risk Factors: Familky hx, HTN, PVD Previous Cardiac Procedures: None Pretest Chest Pain Characteristics: None Exercise History: Indeterminate Physical Disabilities: None Lung Sounds: Clear to auscultation Heart Sounds: Regular Stress Test Details Test: Exercise stress testing was performed using a Riaz protocol. Nuclear Acquisition: Rest Tc-99m/Stress Tc-99m 1 day Rest Isotope: Tc-99m Sestamibi. Dose: 1000 Date: 08/13/2023 Injection Time: 0900 Stress Isotope: Tc-99m Sestamibi. Dose: 30.0 Date: 08/13/2023 Injection Time: 1037 HR Resting HR Supine: 90 bpm Max Heart Rate (APMHR): 151.631794 bpm Resting HR Standin bpm Target HR (85% APMHR): 128.469763 bpm Max HR Achieved: 154 bpm % of APMHR: 101.99 Recovery HR: 100 bpm HR response to stress: Accelerated HR response to stress BP Resting BP Supine: 142/78 mmHg Resting BP Standin/80 mmHg Max BP: 146/75 mmHg Recovery BP: 134/70 mmHg BP response to stress: Normal blood pressure response to stress. ECG Resting ECG: Sinus Rhythm Ectopy: None Stress ECG: Sinus Tachycardia ST Change: No significant ST segment changes noted Arrhythmia: None Recovery ECG: Sinus Tachycardia Recovery ST Change: No significant ST segment changes noted Recovery Arrhythmia: None Clinical Exercise duration: 2 min58 sec Exercise capacity: 4.6 METs Rate Pressure Product: 70085 Stress ECG Conclusion 1. Electrocardiogram showed right axis deviation 2. Patient exercised on the Riaz protocol and completed stage I, a workload of 4.6 METS 3. Accelerated heart rate response to exercise. The patient achieved greater than 100% of predicted heart rate for age 4. There was no electrocardiographic evidence of myocardial ischemia 5. There were no dysrhythmias 6. See MPI report Stress Test Summary STAGE Time (mins) Speed (mph) Grade (%) HR BP SpO2 SYMPTOMS METS Supine 90 142/78 98 Standing 95 145/80 1 3 1.7 10 154 4.5 1 min recovery 154 124/55 96 3 min recovery 112 146/75 97 6 min recovery 100 134/70 97 MPI Conclusion Myocardial perfusion is normal. There is no ischemia or evidence of prior infarction Ejection fraction is 72% with normal wall motion Radiologist Interpretation Radiologist Interpretation by: Patricio Hernandez MD Interpretation Date/Time: 08/14/2023 12:31:55
== END ==
PROVIDERS: PCP Nurse Practitioner Family; Visit Provider Family Medicine
DX: R07.9 Chest pain, unspecified (principal)
CPT/HCPCS: 78452; 93016; 93018; 93017

== ENCOUNTER 2023-09-22 04:14 | Outpatient (CLI) | payer MEDICARE, BC, SELFPAY ==
[2023-09-22 12:13] LABS: Absolute Basophil Count 0.02 10^3/uL (0.0-0.2); Absolute Eosinophil Count 0.23 10^3/uL (0.0-0.7); Absolute Lymphocyte Count 0.79 10^3/uL (1.2-3.4); Absolute Monocyte Count 0.31 10^3/uL (0.1-0.8); Absolute Neutrophil Count 3.35 10^3/uL (1.2-6.7); Basophils % 0.4; Eosinophils % 4.9; HCT 39.9 % (36.0-46.0); Lymphocytes % 16.8; MCH 29.1 pg (27.0-33.0); MCHC 32.6 % (32.0-36.0); MCV 90 fL (80-95); MPV 8.4 fL (8.0-11.0); Monocytes % 6.6; Neutrophils % 71.3; Platelet Count 328 10^3/uL (130-400); RBC 4.46 10^6/uL (3.93-5.22); RDW 12.5 % (11.7-14.6); RDW-SD 40.9 fL
[2023-09-22 13:00] LABS: BUN 23 mg/dL (7-18); CREATININE 0.9 mg/dL (0.55-1.02); Calcium 9.5 mg/dL (8.5-10.1); Chloride 101 mmol/L (98-107); Glucose 102 mg/dL (74-106); Potassium 3.5 mmol/L (3.5-5.1); Sodium 141 mmol/L (136-145); TSH (W/Ref FT4) 1.16 uIU/mL (0.36-3.74)
== END 2023-09-22 04:15 | disposition home or self-care (01) ==
LOC: LBO 04:14
PROVIDERS: PCP Nurse Practitioner Family; Visit Provider Nurse Practitioner Family
DX: R06.09 Other forms of dyspnea (principal); R07.89 Other chest pain; I10 Essential (primary) hypertension
CPT/HCPCS: 36415; 80048; 94060; 84443; 85025

== ENCOUNTER 2023-09-22 05:11 | Outpatient (CLI) | payer MEDICARE, BC, SELFPAY ==
[2023-09-22] MEDS: Levalbuterol HFA 15 GM INH 4 PUFF IH (16:05)
[2023-09-22] MEDS: Inhaler, Assist Device 1 EACH MC (16:06)
== END 2023-09-22 05:12 | disposition home or self-care (01) ==
LOC: RT 05:11
PROVIDERS: PCP Nurse Practitioner Family; Visit Provider Nurse Practitioner Family
DX: R07.89 Other chest pain (principal); R06.00 Dyspnea, unspecified
CPT/HCPCS: 94060

== ENCOUNTER → 2023-09-30 08:55 | Outpatient (CLI) | payer MEDICARE, BC, SELFPAY ==
--- NOTE | 2023-10-02 08:11 | W.PFT ---
Date of service: 09/22/23 Time of Service: 14:54 Pulmonary Function Test Result Indications: Chest tightness Interpretation Spirometry: There is no airflow limitation. No significant bronchodilator response. Impression Normal spirometry Clinical Correlation therefore is recommended.
== END ==
PROVIDERS: PCP Nurse Practitioner Family; Visit Provider Nurse Practitioner Family
DX: R06.09 Other forms of dyspnea (principal); R07.89 Other chest pain
CPT/HCPCS: 93306

== ENCOUNTER → 2024-02-22 02:17 | Outpatient (CLI) | payer MEDICARE, BC, SELFPAY ==
--- NOTE | 2024-02-22 07:00 | DI.MAMMO_ITS ---
Exam(s) MAMMO SCREENING EXAM: MAMMO SCREENING CLINICAL HISTORY: screening,z12.39 TECHNIQUE: Bilateral full field digital CC and MLO mammographic images were obtained with 3D tomosyn thesis and utilizing computer aided detection (CAD). COMPARISON: Available for comparison. FINDINGS: Masses/Architectural Distortion: None seen. Microcalcifications: No suspicious pleomorphic-type are seen. Skin Thickening/Nipple Retraction: None. IMPRESSION: 1. No significant interval change with no specific features of malignancy noted. 2. Unless there is more urgent need, screening mammography is recommended, as per [place] [employer] guidelines. BI-RADS Category 1 - Negative Breast Density - Category C - Heterogeneously dense Breast density category C or D implies that the patient has dense breast tissue. Dense breast tissue is very common and is not abnormal but dense breast tissue can make it harder to find cancer on a ma mmogram. Also, dense breast tissue may increase their breast cancer risk. This information about the result of the mammogram report was provided to the patient to raise their awareness. Use this report when you speak with the patient about their risks for breast cancer, which includes their family hist ory. At that time, you may recommend for more screening tests (Ultrasound or MRI) as they might be us eful based on their risk. A negative radiographic report should not delay biopsy if a dominant or clinically suspicious mass is present. Up to ten percent of cancers are not identified on mammography. A negative report may reinforce clinical impression. Adenosis and dense breasts may obscure an underlying neoplasm. False positive reports average 6 to 10%. Patient will receive a letter notifying them of these results.
== END ==
PROVIDERS: PCP Nurse Practitioner Family; Visit Provider Nurse Practitioner Family
DX: Z12.31 Encounter for screening mammogram for malignant neoplasm of breast (principal); R92.30 Dense breasts, unspecified
CPT/HCPCS: 77063; 77067

== ENCOUNTER 2025-02-09 18:50 | Outpatient (CLI) | payer MEDICARE, BC, SELFPAY ==
--- NOTE | 2025-02-09 | DI.RAD_ITS ---
Exam(s) XR WRIST RT COMPLETE EXAM: XR WRIST RT COMPLETE CLINICAL HISTORY: pain in right wrist M25.531. TECHNIQUE: 2D digital imaging was performed. Three views. COMPARISON: No exams were available for comparison FINDINGS: BONES: No acute fracture is present. No bony destructive lesion is seen. JOINTS: The carpal bones are normally aligned. Mild degenerative changes. SOFT TISSUE: Soft tissue swelling. IMPRESSION: No acute abnormality. DATA REPOSITORY: RADIATION DOSE DELIVERED:
--- NOTE | 2025-02-09 19:31 | DI.VRAD_ITS ---
PROCEDURE INFORMATION: Exam: XR Right Wrist Exam date and time: 02/09/2025 19:00 Age: 69 years old Clinical indication: Pain; Right; R wrist bruising into distal forearm and bump, no known trauma TECHNIQUE: Imaging protocol: Radiologic exam of the right wrist. Views: 3 or more views. COMPARISON: No relevant prior studies available. FINDINGS: Bones/joints: No acute fracture or subluxation. Mild radiocarpal and 1st carpometacarpal degenerative changes. Soft tissues: Soft tissue swelling laterally. Soft tissue swelling dorsally. IMPRESSION: No acute bony pathology. Dictated and Authenticated by: Molly Escobar MD. Orderin Negro Hawkins MD
== END 2025-02-09 19:10 ==
PROVIDERS: PCP Nurse Practitioner Family; Visit Provider Physician Assistant Medical
DX: M25.531 Pain in right wrist (principal)
CPT/HCPCS: 73110

== ENCOUNTER 2025-04-26 02:50 | Outpatient (CLI) | payer MEDICARE, BC, SELFPAY ==
[2025-04-26 09:05] LABS: ALT 17 U/L (14-59); AST 19 U/L (15-37); Albumin 3.7 g/dL (3.4-5.0); Alkaline Phosphatase 61 U/L (46-116); Anion Gap 6.1 mmol/L (3-11); BUN 21 mg/dL (7-18); Bilirubin, Total 0.5 mg/dL (0.2-1.0); CO2 33.9 mmol/L (21.0-32.0); Calcium 8.9 mg/dL (8.5-10.1); Calculated LDL 65 mg/dL (<100); Chloride 101 mmol/L (98-107); Cholesterol 150 mg/dL (<200); Estimated GFR 60.23 (mL/min/1.73m2); Glucose 90 mg/dL (74-106); HDL Cholesterol 80 mg/dL (>or=50); Potassium 3.3 mmol/L (3.5-5.1); Sodium 141 mmol/L (136-145); Total Protein 6.7 g/dL (6.4-8.2); Triglyceride 28 mg/dL (<150)
== END 2025-04-26 02:51 | disposition home or self-care (01) ==
LOC: LBO 02:50
PROVIDERS: PCP Nurse Practitioner Family; Visit Provider Nurse Practitioner Family
DX: I10 Essential (primary) hypertension (principal)
CPT/HCPCS: 36415; 80053; 80061

== ENCOUNTER 2025-06-29 04:02 | Outpatient (CLI) | payer MEDICARE, BC, SELFPAY ==
--- NOTE | 2025-06-29 07:15 | DI.MAMMO_ITS ---
Exam(s) MAMMO SCREENING EXAM: MAMMO SCREENING CLINICAL HISTORY: screening,z12.39 TECHNIQUE: Bilateral full field digital CC and MLO mammographic images were obtained with 3D tomosynthesis and utilizing computer aided detection (CAD). COMPARISON: Comparison is made with prior examinations. FINDINGS: Masses/Architectural Distortion: No suspicious masses or areas of architectural distortion are present. Microcalcifications: No suspicious pleomorphic-type are seen. There are stable calcifications in the upper outer quadrant of the right breast. Skin Thickening/Nipple Retraction: None. IMPRESSION: 1. No significant interval change with no specific features of malignancy noted. 2. Unless there is more urgent need, screening mammography is recommended, as per [employer] guidelines. BI-RADS Category 1 - Negative Breast Density - Category C - The breast are heterogeneously dense, which may obscure small masses. Breast density Category C or D implies that the patient has dense breast tissue. Dense breast tissue can make it harder to find cancer on a mammogram. Dense breast tissue is also associated with an increased risk of breast cancer. This information about the result of the mammogram report was provided to the patient to raise their awareness. Use this report when you speak with the patient about their risks for breast cancer, which includes their family history. At that time, you may recommend additional screening tests (Ultrasound or MRI) as these tests may add significant information. A negative radiographic report should not delay biopsy if a dominant or clinically suspicious mass is present. Up to ten percent of cancers are not identified on mammography. A negative report may reinforce clinical impression. Adenosis and dense breasts may obscure an underlying neoplasm. False positive reports average 6 to 10%. Patient will receive a letter notifying them of these results.
--- NOTE | 2025-06-29 07:15 | DI.DEXA_ITS ---
Exam(s) XR DEXA BONE DENSITY W/WO JESSI EXAM: XR DEXA BONE DENSITY W/WO JESSI CLINICAL HISTORY: screening,postmenopausal status,z78.0 TECHNIQUE: Routine DEXA evaluation of the lumbar spine, hip, or forearm. COMPARISON: No exams were available for comparison FINDINGS: Performed on a Hologic unit. Lateral image: No compression fracture evident. Lumbar Spine total T-score: -1.4 which is osteopenia range Hip total T-score:-2.3 which is osteopenia range. Independent reading at the level of the femoral neck yields T-score of -2.5 which is osteoporosis range Forearm total T-score: -1.8 which is also DOP knee region IMPRESSION: Bone mineral density measures in the osteopenia range for the lumbar spine and formed-wrist. Fracture risk is moderate at these levels.. Bone mineral density measures in the osteoporosis range at the femoral neck level. Fracture risk is significantly higher at this level. Note: Any spine fracture indicates 5x risk for subsequent spine fracture and 2x risk for subsequent hip fracture. World Health Organization criteria for BMD interpretation classify patients: Normal...... T- Score at or above -1.0 Osteopenic... T- Score between -1.0 and -2.5 Osteoporosis... T-Score at or below -2.5
== END 2025-06-29 04:22 ==
LOC: DI 04:02
PROVIDERS: PCP Nurse Practitioner Family; Visit Provider Nurse Practitioner Family
DX: Z12.31 Encounter for screening mammogram for malignant neoplasm of breast (principal); Z78.0 Asymptomatic menopausal state; Z13.820 Encounter for screening for osteoporosis; M85.89 Other specified disorders of bone density and structure, multiple sites
CPT/HCPCS: 77063; 77067; 77080